=== PATIENT | male | born 1970 | race Hispanic/Latino ===

== ENCOUNTER 2018-04-02 09:51 | Emergency (ER) | payer OTHER ==
[~2018-04-02 09:51] MED LIST: AMOX-426 PO; GLYB2.5 PO; KRIL1CAP22 PO; LISI2.5T2 PO; METF500T6 PO
[2018-04-02] MEDS ORDERED: TETRACAINE HCL 0.5% 4 ML OPHTH SOLN ONE (09:58)
[2018-04-02] MEDS ORDERED: NA BORATE/BORIC AC/H2O/NACL 120 ML OPHTH IRRIG SOLN ONE (09:59)
[2018-04-02] MEDS ORDERED: FLUORESCEIN SODIUM 0.6 MG STRIP ONE (09:59)
[2018-04-02] MEDS ORDERED: GENTAMICIN SULFATE 0.3% 5ML DROPS ONE (10:52)
[2018-04-02] MEDS ORDERED: HYDROCODONE/ACETAMINOPHEN 5/325 MG TAB ONE (10:52)
== END 2018-04-02 10:59 | disposition home or self-care (01) ==
LOC: EDH 09:51
DX: T15.01XA Foreign body in cornea, right eye, initial encounter (principal); W22.8XXA Striking against or struck by other objects, initial encounter; Y93.89 Activity, other specified; Y92.69 Other specified industrial and construction area as the place of occurrence of the external cause; Y99.8 Other external cause status; E11.9 Type 2 diabetes mellitus without complications; I10 Essential (primary) hypertension
CPT/HCPCS: 65222

== ENCOUNTER 2023-12-12 08:33 | Emergency (ER) | payer BC, OTHER ==
[~2023-12-12] VITALS: Ht 172.7 cm; Wt 87.1 kg
[~2023-12-12 08:33] MED LIST changes: -GLYB2.5 PO; +GLYB2.5T6 PO; +LISI2.5T13 PO; -LISI2.5T2 PO; +METF-444 PO; -METF500T6 PO
[2023-12-12 09:05] LABS: HEMATOCRIT 47.4 % (42-54); MEAN CORPUSCULAR HEMOGLOBIN 31.4 pg (27.0-33.0); MEAN CORPUSCULAR HGB CONC 36.7 g/dL (32.0-36.0); MEAN CORPUSCULAR VOLUME 85.6 fL (79-99); PLATELET COUNT (AUTO) 183 K/uL (130-400); RED BLOOD CELL COUNT(AUTO) 5.54 MIL/uL (4.50-6.20); RED CELL DISTRIBUTION WIDTH 11.9 % (11.0-15.5); WHITE BLOOD COUNT (AUTO) 10.5 K/uL (4.8-10.8)
[2023-12-12 09:18] LABS: POTASSIUM 4.5 mmol/L (3.5-5.1)
[2023-12-12 09:22] LABS: ALBUMIN 4.2 g/dL (3.5-5.0); BILIRUBIN,TOTAL 1.1 mg/dL (0.2-1.0); TOTAL PROTEIN, SERUM 8.3 g/dL (6.0-8.3)
[2023-12-12 09:30] LABS: ADD UA MICROSCOPIC YES; APPEARANCE,URINE CLEAR (CLEAR); BILIRUBIN,URINE NEGATIVE (NEGATIVE); COLOR,URINE LIGHT-YELLOW (YELLOW); GLUCOSE, URINE (UA) >=1000 mg/dL (NEGATIVE); KETONES,URINE 20 mg/dL (NEGATIVE); LEUKOCYTE ESTERASE ,URINE NEGATIVE Leu/uL (NEGATIVE); NITRATE,URINE NEGATIVE (NEGATIVE); OCCULT BLOOD,URINE NEGATIVE (NEGATIVE); PH,URINE 5.5 (5.0-8.0); PROTEIN,URINE NEGATIVE (NEGATIVE); UROBILINOGEN,URINE 0.2 mg/dL (0.2-1.0)
[2023-12-12 09:35] LABS: RBC,URINE 0-1 /HPF (0-1); SQUAMOUS EPITHELIAL CELL,UR RARE /HPF (0-2); WBC,URINE 0-1 /HPF (0-1)
[2023-12-12 10:27] LABS: BAND NEUTROPHILS % (MANUAL) 2 % (0-2); EOSINOPHILS % (MANUAL) 1 % (1-6); LYMPHOCYTES % (MANUAL) 4 % (22-44); MAN.DIFF COMMENT-IMPRESSION MANUAL DIFFERENTIAL; MONOCYTES % (MANUAL) 8 % (2-9); PLATELET MORPHOLOGY COMMENT ADEQUATE; SEGMENTED NEUTROPHILS % 85 % (40-70); TOTAL CELLS COUNTED 100
[2023-12-12 11:04] LABS: SARS-CoV-2, RNA, NAAT NEGATIVE SARS CoV-2 (NEGATIVE)
[2023-12-12 11:09] LABS: INFLUENZA TYPE A Negative For Type A (NEGATIVE)
[2023-12-12] MEDS: NAPROXEN 500 MG TABLET PO ONE (12:24)
[2023-12-12] MEDS ORDERED: IBUPROFEN 600 MG TABLET PO ONE (12:30)
[2023-12-12 12:52] LABS: INFLUENZA TYPE B Positive For Type B (NEGATIVE)
[2023-12-12] MEDS ORDERED: OSEL75 PO (12:59)
[2023-12-12 14:28] VITALS: BP 132/80; PULSE 88; RESP 19; O2SAT 97
== END 2023-12-12 14:29 | disposition home or self-care (01) ==
LOC: EDH 08:33
DX: J10.1 Influenza due to other identified influenza virus with other respiratory manifestations (principal); E11.9 Type 2 diabetes mellitus without complications; E78.00 Pure hypercholesterolemia, unspecified; I10 Essential (primary) hypertension; M79.662 Pain in left lower leg; Z79.84 Long term (current) use of oral hypoglycemic drugs; Z79.899 Other long term (current) drug therapy; Z20.822 Contact with and (suspected) exposure to COVID-19
CPT/HCPCS: 36415; 80053; 81001; 82550; 83880; 84484; 85025; 87635; 87804; 93005; 93971

== ENCOUNTER 2024-07-20 14:07 | Emergency (ER) | payer BC ==
[~2024-07-20] VITALS: Ht 160 cm; Wt 88.0 kg
[2024-07-20] MEDS: ketOROlac 30MG VIAL (30MG/ML) IM ONE (14:58)
[2024-07-20 15:39] VITALS: BP 138/78; PULSE 78; RESP 20; TEMP 98.2; O2SAT 98
== END 2024-07-20 15:41 | disposition home or self-care (01) ==
LOC: EDH 14:07
DX: K02.9 Dental caries, unspecified (principal); E11.9 Type 2 diabetes mellitus without complications; I10 Essential (primary) hypertension
CPT/HCPCS: 99284; 96372; J1885